=== PATIENT | female | born 1985 | race Caucasian/White ===

== ENCOUNTER 2017-11-15 08:37 | Emergency (ER) | payer BC, MEDICAID, OTHER ==
[~2017-11-15 08:37] MED LIST: IBUP600 PO; OXYC1SOL5 PO; PREN0.01 PO
[2017-11-15 08:43] VITALS: BP 122/58; PULSE 76; RESP 18; TEMP 99; O2SAT 100
--- NOTE | 2017-11-15 09:13 | PD ---
HPI Chief Complaint: Injury Time Seen by Provider: 08:58 Travel History International Travel<30 days: No Contact w/Intl Traveler<30days: No Traveled to known affect area: No History of Present Illness HPI 32-year-old female presents to the emergency department for evaluation left e wrist injury that occurred today. Patient states she was carrying her 3-year- old child and holding the hand of her 1-year-old child down the stairs when she slipped and fell, landing on her left wrist. She denies any head injury or LOC. No neck pain or back pain. No chest pain or abdominal pain. Current pain is 8/10, aching and throbbing that radiates up the left arm. She has no chronic medical problems and takes no prescribed medication. She denies . Movement will exacerbate the pain. Ice helps alleviate the pain. Mild severity. PFSH Past Medical History Medical History: Denies Significant Hx Diminished Hearing: No Tetanus Vaccination: Unknown Influenza Vaccination: Yes ?: Not LMP: 10/21/17 : 1 Para: 0 Miscarriage: 0 Past Surgical History Surgical History: No Previous Surgery Social History Alcohol Use: No Tobacco Use: No Substance Use: No Allergies-Medications (Allergen,Severity, Reaction): Coded Allergies: No Known Allergies (Unverified Allergy, Unknown, 11/15/17) Reported Meds & Prescriptions Reported Meds & Active Scripts Active Review of Systems Except as stated in HPI: all other systems reviewed are Neg Physical Exam Narrative GENERAL: Well-nourished, well-developed female patient, ambulatory. Afebrile. SKIN: Focused skin assessment warm/dry. No lacerations or abrasions. HEAD: Normocephalic. Atraumatic. EYES: No scleral icterus. No injection or drainage. NECK: Supple, trachea midline. No JVD or lymphadenopathy. CARDIOVASCULAR: Regular rate and rhythm without murmurs, gallops, or rubs. Left radial pulse is 2+. RESPIRATORY: Breath sounds equal bilaterally. No accessory muscle use. Lung sounds are clear to auscultation. GASTROINTESTINAL: Abdomen soft, non-tender, nondistended. MUSCULOSKELETAL: No cyanosis, or edema. Patient has tenderness over left medial wrist. No obvious deformity. No other bony point tenderness. BACK: Nontender without obvious deformity. No CVA tenderness. Data Data Last Documented VS Vital Signs Date Time Temp Pulse Resp B/P (MAP) Pulse Ox O2 Delivery O2 Flow Rate FiO2 11/15/17 08:43 99.0 76 18 122/58 (79) 100 Orders Orders Ibuprofen (Motrin) (11/15/17 09:15) Wrist, Complete (Yxm2flp) (11/15/17 ) [facility] Medical Decision Making Medical Screen Exam Complete: Yes Emergency Medical Condition: Yes Medical Record Reviewed: Yes Interpretation(s) Last Impressions Wrist X-Ray 11/15/17 0000 Signed Impressions: CONCLUSION: Negative trauma study. Differential Diagnosis Sprain versus fracture versus dislocation versus contusion Narrative Course 32-year-old female presents to the emergency department for evaluation left wrist injury. Patient is given ibuprofen 600 mg p.o. X-ray of the left wrist is ordered and pending. Ice pack is applied. X-ray of the left wrist is negative. Patient is provided Velcro wrist splint. She will be discharged with a prescription for ibuprofen for pain. Diagnosis Primary Impression: Left wrist sprain Qualified Codes: S63.502A - Unspecified sprain of left wrist, initial encounter Referrals: Primary Care Physician call for appointment Patient Instructions: General Instructions, Wrist Sprain (ED) Additional Instructions: Wear Velcro wrist splint as needed for support Take ibuprofen as directed as needed with food for pain. Ice for 20 minutes 4-5 times daily. Follow-up with a primary care physician. Return to the emergency department for any acute worsening of symptoms. Med/Other Pt SpecificInfo: Prescription(s) given Scripts Ibuprofen (Ibuprofen) 600 Mg Tab 600 MG PO TID Y for PAIN SCALE 1 TO 10, #21 TAB 0 Refills Prov: MasterMaris 11/15/17 Disposition: 01 DISCHARGE HOME Condition: Stable Maris Thao November 15, 2017 09:13
[2017-11-15] MEDS ORDERED: IBUPROFEN 600 MG TAB PO ONE (09:15)
--- NOTE | 2017-11-15 09:33 | RADRPT ---
EXAM DATE: 11/15/2017 9:25 AM EDT AGE/SEX: 32 years / Female INDICATIONS: Medial left wrist pain after falling down stairs. CLINICAL DATA: This is the patient's initial encounter. Patient reports that signs and symptoms have been present for 1 day and indicates a pain score of 8/10. MEDICAL/SURGICAL HISTORY: None. None. COMPARISON: No prior [place] exams available for comparison. FINDINGS: Bony structures are intact and in normal alignment. Joints are intact without dislocation or signifi cant arthropathy. Osseous density is normal. Soft tissues are unremarkable. No radiopaque foreign bodies seen. CONCLUSION: Negative trauma study. Electronically signed by: Brandon Lopez MD 11/15/2017 9:32 AM EDT
[2017-11-15] MEDS ORDERED: IBUP-232 PO (09:53)
== END 2017-11-15 10:38 | disposition home or self-care (01) ==
LOC: NEPD 08:37
DX: S63.502A Unspecified sprain of left wrist, initial encounter (principal); W10.9XXA Fall (on) (from) unspecified stairs and steps, initial encounter
CPT/HCPCS: 73110; 99283; L3908